=== PATIENT | male | born 1935 | race Caucasian/White ===

== ENCOUNTER 2020-04-07 15:14 | Outpatient (CLI) | payer MEDICARE, BC ==
[~2020-04-07 15:14] MED LIST: ACET500C5 PO; ATEN-27 PO; CALC500T11 PO; CEPH-572 PO; CYAN-34 PO; FENO145T26 PO; FINA5TAB11 PO; FLO0.4C PO; GLIP10TA11 PO; HCTZ25T PO; ICOS1CAP PO; INSU100I25 SQ; LISI-600 PO; LOPE2TAB25 PO; NOVLG; ROSU40TA PO; TRIA15CR61 TOP
== END 2020-04-07 23:59 | disposition home or self-care (01) ==
LOC: RAD 15:14
PROVIDERS: ATTEND Family Medicine
DX: K21.9 Gastro-esophageal reflux disease without esophagitis (principal); R13.12 Dysphagia, oropharyngeal phase; R49.0 Dysphonia
CPT/HCPCS: 74230

== ENCOUNTER 2021-04-12 14:58 | Emergency (ER) | payer MEDICARE, BC ==
[~2021-04-12] VITALS: Ht 170.2 cm; Wt 75.5 kg
[~2021-04-12 14:58] MED LIST changes: -HCTZ25T PO; +HYDR25TA5 PO; -LISI-600 PO; +LISI20TA28 PO
[2021-04-12] MEDS ORDERED: normal saline 1000ML IV soln IVB ONE (15:15)
[2021-04-12 15:37] LABS: BASOPHILS % (AUTO) 0.4 % (0-1); EOSINOPHILS # (AUTO) 0.1 X10'3 (0-0.9); EOSINOPHILS % (AUTO) 0.7 % (0-6); HEMATOCRIT 35.5 % (42.0-52.0); HEMOGLOBIN 12.2 g/dl (14.0-17.9); LYMPHOCYTES # (AUTO) 2.3 X10'3 (1.1-4.8); LYMPHOCYTES % (AUTO) 29.6 % (21-51); MEAN CORPUSCULAR HEMOGLOBIN 31.8 PG (27.0-31.0); MEAN CORPUSCULAR HGB CONC 34.2 g/dL (33.0-36.5); MEAN CORPUSCULAR VOLUME 92.9 FL (78-98); MEAN PLATELET VOLUME 6.8 FL (7.4-10.4); MONOCYTES # (AUTO) 0.6 X10'3 (0-0.9); MONOCYTES % (AUTO) 8.1 % (2-12); NEUTROPHILS # (AUTO) 4.8 X10'3 (1.8-7.7); NEUTROPHILS % (AUTO) 61.2 % (42-75); PLATELET COUNT 220 X10'3 (140-440); RED BLOOD COUNT 3.82 X10'6 (4.70-6.10); RED CELL DISTRIBUTION WIDTH 14.5 % (11.5-14.5); WHITE BLOOD COUNT 7.9 X10'3 (4.5-11.0)
[2021-04-12 16:04] LABS: ALANINE AMINOTRANSFERASE 13 U/L (12-78); ALBUMIN 3.4 G/DL (3.4-5.0); ALBUMIN/GLOBULIN RATIO 0.9 (1.1-1.5); ALKALINE PHOSPHATASE 30 IU/L (46-116); ANION GAP 13 (8-16); ASPARTATE AMINO TRANSFERASE 15 U/L (10-37); BILIRUBIN,TOTAL 0.4 MG/DL (0.1-1.0); BLOOD UREA NITROGEN 45 MG/DL (7-18); BUN/CREATININE RATIO 22.6 (5.4-32.0); CALCIUM 8.7 MG/DL (8.5-10.1); CHLORIDE 100 MMOL/L (99-107); CREATININE 1.99 MG/DL (0.60-1.10); GLUCOSE 113 MG/DL (70-104); POTASSIUM 4.2 MMOL/L (3.5-5.1); SODIUM 135 MMOL/L (135-145); TOTAL CARBON DIOXIDE 22.2 MMOL/L (24-32); TOTAL PROTEIN 7.1 G/DL (6.4-8.2); eGFR 32 ML/MIN
[2021-04-12 16:06] LABS: CLARITY,URINE CLOUDY (Clear); COLOR,URINE STRAW (Yellow); GLUCOSE, URINE NEGATIVE (Neg); KETONES,URINE NEGATIVE (Neg); LEUKOCYTE ESTERASE ,URINE SMALL (Neg); NITRITES, URINE POSITIVE (Neg); OCCULT BLOOD,URINE TRACE-INTACT (Neg); PH,URINE 5.5 (4.8-8.0); PROTEIN,URINE NEGATIVE (Neg); UROBILINOGEN,URINE 0.2 E.U/dL (0.2-1.0)
[2021-04-12 16:24] LABS: UA COLLECTION TYPE FOLEY CATH
[2021-04-12 16:25] LABS: BACTERIA,URINE 3+ /HPF (Neg); HYALINE CASTS 0-3 /LPF (NEGATIVE); MUCUS STRANDS FEW /LPF (Neg); SQUAMOUS EPITHELIAL CELL,UR FEW /LPF (FEW)
[2021-04-12] MEDS ORDERED: CefTRIAXone/D5W-Rocephin 1gm 50 ML IV ONE (16:35)
[2021-04-12 16:36] VITALS: BP 148/64
[2021-04-12] MEDS ORDERED: CEPH-585 PO (16:51)
--- NOTE | 2021-04-12 17:10 | NUR ---
TC FROM [facility], FOR CONDITION REPORT.
--- NOTE | 2021-04-12 17:41 | NUR ---
[facility] NOTIFIED [facility] WITH [facility]. [facility] AND PATIENT IS TO BE TRANSPORTED PER TRISTAN CARGO.
== END 2021-04-12 18:43 | disposition home or self-care (01) ==
LOC: ER 14:59
DX: N39.0 Urinary tract infection, site not specified (principal); R50.9 Fever, unspecified; R44.1 Visual hallucinations; I25.10 Atherosclerotic heart disease of native coronary artery without angina pectoris; E78.00 Pure hypercholesterolemia, unspecified; I12.9 Hypertensive chronic kidney disease with stage 1 through stage 4 chronic kidney disease, or unspecified chronic kidney disease; E11.22 Type 2 diabetes mellitus with diabetic chronic kidney disease; N18.9 Chronic kidney disease, unspecified; E11.42 Type 2 diabetes mellitus with diabetic polyneuropathy; Z87.440 Personal history of urinary (tract) infections; Z79.2 Long term (current) use of antibiotics; Z79.899 Other long term (current) drug therapy; Z79.4 Long term (current) use of insulin
CPT/HCPCS: 36415; 70450; 71045; 80053; 81001; 83605; 84145; 85025; 87040; 87077; 87088; 87186; 93005; 96365; 99285; J0696; J7030

== ENCOUNTER 2022-03-19 10:50 | Emergency (ER) | payer OTHER, MEDICARE, BC ==
[~2022-03-19] VITALS: Ht 177.8 cm; Wt 77.3 kg
[~2022-03-19 10:50] MED LIST changes: +CEPH-585 PO
[2022-03-19 13:27] LABS: CLARITY,URINE CLOUDY (Clear); COLOR,URINE RED (Yellow); GLUCOSE, URINE NEGATIVE (Neg); KETONES,URINE NEGATIVE (Neg); LEUKOCYTE ESTERASE ,URINE LARGE (Neg); NITRITES, URINE POSITIVE (Neg); OCCULT BLOOD,URINE LARGE (Neg); PROTEIN,URINE 100 mg/dl (Neg); UROBILINOGEN,URINE 0.2 E.U/dL (0.2-1.0)
[2022-03-19 13:27] LABS: BASOPHILS % (AUTO) 0.2 % (0-1); EOSINOPHILS % (AUTO) 0.2 % (0-6); HEMATOCRIT 40.2 % (42.0-52.0); HEMOGLOBIN 13.3 g/dl (14.0-17.9); LYMPHOCYTES # (AUTO) 2.2 X10'3 (1.1-4.8); LYMPHOCYTES % (AUTO) 16.6 % (21-51); MEAN CORPUSCULAR HEMOGLOBIN 30.5 PG (27.0-31.0); MEAN CORPUSCULAR HGB CONC 33.2 g/dL (33.0-36.5); MEAN CORPUSCULAR VOLUME 91.9 FL (78-98); MEAN PLATELET VOLUME 7.3 FL (7.4-10.4); MONOCYTES # (AUTO) 1.2 X10'3 (0-0.9); MONOCYTES % (AUTO) 9.2 % (2-12); NEUTROPHILS # (AUTO) 9.5 X10'3 (1.8-7.7); NEUTROPHILS % (AUTO) 73.8 % (42-75); PLATELET COUNT 214 X10'3 (140-440); RED BLOOD COUNT 4.37 X10'6 (4.70-6.10); RED CELL DISTRIBUTION WIDTH 15.9 % (11.5-14.5); WHITE BLOOD COUNT 12.9 X10'3 (4.5-11.0)
[2022-03-19 13:29] LABS: UA COLLECTION TYPE FOLEY CATH
[2022-03-19 13:34] LABS: BACTERIA,URINE 3+ /HPF (Neg); MUCUS STRANDS NONE SEEN /LPF (Neg); RBC,URINE TNTC /HPF (0-2); SQUAMOUS EPITHELIAL CELL,UR NONE SEEN /LPF (FEW); WBC CLUMPS,URINE MANY /HPF (NEGATIVE); WBC,URINE TNTC /HPF (0-4)
[2022-03-19 13:37] LABS: ALANINE AMINOTRANSFERASE 14 U/L (12-78); ALBUMIN 3.4 G/DL (3.4-5.0); ALBUMIN/GLOBULIN RATIO 0.8 (1.1-1.5); ALKALINE PHOSPHATASE 40 IU/L (46-116); ANION GAP 10 (8-16); ASPARTATE AMINO TRANSFERASE 19 U/L (10-37); BILIRUBIN,TOTAL 0.7 MG/DL (0.1-1.0); BLOOD UREA NITROGEN 34 MG/DL (7-18); BUN/CREATININE RATIO 22.7 (5.4-32.0); CALCIUM 9.5 MG/DL (8.5-10.1); CHLORIDE 101 MMOL/L (99-107); GLUCOSE 163 MG/DL (70-104); POTASSIUM 4.2 MMOL/L (3.5-5.1); SODIUM 136 MMOL/L (135-145); TOTAL CARBON DIOXIDE 24.9 MMOL/L (24-32); TOTAL PROTEIN 7.5 G/DL (6.4-8.2); eGFR 44 ML/MIN
[2022-03-19] MEDS ORDERED: normal saline 1000ml 1,000 ML IV ONE ×2 (15:25→19:20)
[2022-03-19] MEDS ORDERED: levoFLOXACIN-Levaquin 500mg/D5 100 ML IV ONE (15:25)
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
[2022-03-19] MEDS ORDERED: haloperidol lactate 5mg/ml inj IM ONE (16:20)
[2022-03-19] MEDS ORDERED: haloperidol lactate 5mg/ml inj IVH ONE (16:20)
--- NOTE | 2022-03-19 17:34 | NUR ---
SPOKE WITH MACIEJ CORTEZ AT [facility]. IF PT NEEDS TRANSPORTBACK M-F THEY HAVE THEIR OWN TRANSPORT. WEEKENDS THEY USE [facility].
--- NOTE | 2022-03-19 17:37 | NUR ---
[facility] [phone]
[2022-03-19] MEDS ORDERED: LIDOcaine 2% 10ml TOPICAL JELLY (Urojet) MM ONE (17:50)
--- NOTE | 2022-03-19 19:12 | NUR ---
PT'S SON, VJ PULIDO
[2022-03-19] MEDS ORDERED: LEVO250T43 PO (19:55)
--- NOTE | 2022-03-19 20:16 | NUR ---
CONTACTED [facility] TO COORDINATE TRANSPORT OF PT BACK TO [place]. LEFT VM WITH NAME AND NUMBER TO CONTACT US BACK.
--- NOTE | 2022-03-19 22:50 | NUR ---
TALKED TO NURSE JOHN Bush AT [facility]. SHE WILL BE CALLING THEIR TO GET THE OK ON PT. COMING BACK TO THEIR FACILITY.
[2022-03-19 23:40] VITALS: BP 123/72
== END 2022-03-20 00:08 | disposition home or self-care (01) ==
LOC: ER 10:50
DX: T83.091A Other mechanical complication of indwelling urethral catheter, initial encounter (principal); R33.9 Retention of urine, unspecified; N39.0 Urinary tract infection, site not specified; R10.31 Right lower quadrant pain; R31.9 Hematuria, unspecified; E11.42 Type 2 diabetes mellitus with diabetic polyneuropathy; I12.9 Hypertensive chronic kidney disease with stage 1 through stage 4 chronic kidney disease, or unspecified chronic kidney disease; E11.22 Type 2 diabetes mellitus with diabetic chronic kidney disease; N18.9 Chronic kidney disease, unspecified; E78.00 Pure hypercholesterolemia, unspecified; F17.200 Nicotine dependence, unspecified, uncomplicated; I25.10 Atherosclerotic heart disease of native coronary artery without angina pectoris; Z79.2 Long term (current) use of antibiotics; Z79.4 Long term (current) use of insulin; Z79.899 Other long term (current) drug therapy; Y84.6 Urinary catheterization as the cause of abnormal reaction of the patient, or of later complication, without mention of misadventure at the time of the procedure
CPT/HCPCS: 36415; 51702; 74176; 80053; 81001; 85025; 87077; 87088; 87186; 96361; 96365; 96372; 99285; J1630; J1956; J7030; A4314; C1758